=== PATIENT | male | born 1980 | race Caucasian/White ===

== ENCOUNTER 2025-01-13 11:06 | Outpatient (CLI) | payer BC, SELFPAY ==
[2025-01-18 01:20] LABS: Lyme B. burgdorferi PCR Blood Negative (Negative)
== END 2025-01-13 23:59 | disposition home or self-care (01) ==
LOC: LAB.DROPOF 01-17 11:08
PROVIDERS: PCP Family Medicine; Visit Provider Nurse Practitioner
DX: S20.469A Insect bite (nonvenomous) of unspecified back wall of thorax, initial encounter (principal); R21 Rash and other nonspecific skin eruption; W57.XXXA Bitten or stung by nonvenomous insect and other nonvenomous arthropods, initial encounter
CPT/HCPCS: 87476